=== PATIENT | male | born 1965 | race African-American/Black ===

== ENCOUNTER 2017-04-19 12:16 | Inpatient (IN) ==
--- NOTE | 2017-04-19 13:30 | CT Report ---
Referring physician: Eddie Aguayo Exam: CT brain without contrast Date: 04/19/2017 Comparison: 02/21/2017 Reason: Right-sided weakness, slurred speech Technique: Axial images of the head were obtained without the use of contrast. Total DLP was 1025.60 mGy*cm. Findings: No hydrocephalus or midline shift is present. There is no evidence of an acute infarction, recent intracranial hemorrhage or abnormal mass effect. Persistent atrophy and diffuse cerebral hypodensities. Residual diffuse dilatation of the arteries. The osseous structures appear intact. The mastoid air cells and visualized paranasal sinuses are clear. Impression: No acute intracranial abnormality is identified. Persistent atrophy and microvascular disease The CT exam was performed using one or more of the following dose reduction techniques: Automated exposure control and adjustment of the mA and/or kV according to patient size. PROCEDURE INTERPRETED AT [facility] DEPARTMENT OF RADIOLOGY Final Report Signed by: Dr. Cathleen Patton
[2017-04-19 14:31] LABS: Basophils % 0.7 % (0.0-0.8); Eosinophils % 0.5 % (0.00-10.9); Hematocrit 39.5 VOL% (42.0-52.0); Hemoglobin 13.4 GM/DL (14.0-18.0); Immature Granulocytes % 0.4 %; Immature Granulocytes Absolute 0.02 #; Lymphocytes # 1.4 10*3/uL (1.4-4.0); Lymphocytes % 25.7 % (21.2-54.2); Mean Corpuscular HGB Conc 33.9 GM/DL (32-36); Mean Corpuscular Hemoglobin 30 PG (27-34); Mean Corpuscular Volume 89.2 FL (87-102); Mean Platelet Volume 11.3 FL (9.6-12.0); Monocytes # 0.3 10*3/uL (0.11-0.8); Monocytes % 5.9 % (1.7-12.7); Neutrophils # 3.7 10*3/uL (1.4-7.4); Neutrophils % 66.8 % (38.7-73.9); Platelet Count 193 T/CUMM (130-400); Red Blood Count 4.43 MC/CUMM (3.8-5.5); Red Cell Distribution Width 11.9 % (9.3-17.3); White Blood Count 5.6 T/CUMM (4-12)
[2017-04-19 14:35] LABS: INR 1.1; PT Patient Result 11.7 SECS
--- NOTE | 2017-04-19 14:38 | EKG Report ---
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
[2017-04-19 14:49] LABS: Albumin 4.1 G/DL (3.4-5.0); Bilirubin,Total 0.7 MG/DL (0.2-1.0); Calcium 9.6 MG/DL (8.5-10.1); Osmolality,Calculated 282.3 MOS/KG (273-304); Potassium 3.4 MMOL/L (3.5-5.1); Total Protein 7.4 G/DL (6.4-8.3)
--- NOTE | 2017-04-19 15:00 | Emergency Department Note ---
Gianni Bruce Brittany, am scribing for, and in the presence of, Eddie Aguayo MD 13:59. Dede Bruce Phillip K, MD, personally performed the services described in this documentation, ascribed by Heather Archer in my presence, and it is both accurate and complete . Arrival - Arrival Chief Complaint: Neuro Stated Complaint: pain in right leg ED Nursing Triage Note: reports woke up this morning unable to move right leg. pt is tearful. drooping to right side of face.has had strokes in the past . last cva was in 2008. speech is slurred. Mode of Arrival: Wheelchair Limitations: No Limitations Source: Patient Time Seen by Provider: 04/19/17 13:20 - History of Present Illness HPI Narrative: This is a 51 y/o male,who presents to the ED for further neurological evaluation. 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 He reports his RUE is numb as well. He denies a GOMEZ. His notes slurred speech. His PCP is Dr. Coyle. Pt has no complaints/pain in the ED at this time. Pt has a PMHx of HTN and CVA. Pt denies a surgical Hx. Pt has a family medical Hx of CVA. Pt denies a social Hx. Onset (ago): hour(s) (Started earlier this morning) Consistency: constant Severity: moderate Allergies/Adverse Reactions: Allergies Allergy/AdvReac Type Severity Reaction Status Date / Time No Known Allergies Allergy Verified 10/06/16 23:06 Home Medications: Home Medications Medication Instructions Recorded Confirmed Type Diclofenac Sodium Tab [Voltaren] 50 mg PO BID 07/12/16 04/19/17 History Fluticasone 50 Mcg Nasal [place] 1 spray BOTH NARES DAILY 07/12/16 04/19/17 History [Flonase Nasal [place]] Furosemide [Furosemide] 40 mg PO DAILY 07/12/16 04/19/17 History Gabapentin Cap/Tab [Neurontin 300 mg PO TID 07/12/16 04/19/17 History Cap/Tab] Potassium Chloride Cap/Tab [K Dur] 20 meq PO DAILY 07/12/16 04/19/17 History Simvastatin 20 mg PO DAILY 07/12/16 04/19/17 History Aspirin EC Tab 81 mg PO DAILY 04/19/17 04/19/17 History Cetirizine Tab [ZyrTEC Tab] 10 mg PO DAILY 04/19/17 04/19/17 History FLUoxetine [PROzac] 20 mg PO DAILY 04/19/17 04/19/17 History Labetalol Tab [Trandate Tab] 100 mg PO BID 04/19/17 04/19/17 History Lisinopril/Hydrochlorothiazide 1 each PO DAILY 04/19/17 04/19/17 History [Lisinopril-Hctz 20-12.5 mg Tab] NIFEdipine [Nifedipine ER] 90 mg PO DAILY 04/19/17 04/19/17 History Review of System - Review of System 12 point system: reviewed and no additional remarkable complaints except as stated - Review of System Neurological: Present: weakness (Weakness to the RLE), other (SLurred speech) Medical,Surgical,& Family Hx - Medical History Cardio: History of: Hypertension Neurology: History of: Cerebrovascular Accident (X2 2008) - Social History Smoking Status: Never smoker Exam Vital Signs: Vital Signs Temperature 99.1 F 04/19/17 12:23 Pulse Rate 85 04/19/17 12:23 Respiratory Rate 20 04/19/17 12:23 Blood Pressure 168/114 04/19/17 12:23 O2 Sat by Pulse Oximetry 96 04/19/17 12:23 - General General appearance: alert, in no apparent distress - Head Head exam: Present: atraumatic, normocephalic, normal inspection - Eye Eye exam: Present: normal appearance, PERRL, EOMI. Absent: nystagmus, miosis, mydriasis - ENT ENT exam: Present: normal exam, normal oropharynx, mucous membranes moist, TM's normal bilaterally, normal external ear exam - Neck Neck exam: Present: normal inspection, full ROM, trachea midline. Absent: tenderness, meningismus, lymphadenopathy, thyromegaly - Chest Chest inspection: Present: normal inspection, symmetric chest wall rise. Absent : tenderness, rash, abscess - Respiratory Respiratory exam: Present: normal lung sounds bilaterally. Absent: rales, respiratory distress, rhonchi, stridor, wheezes - Cardiovascular Cardiovascular exam: Present: regular rate, irregular rhythm, normal heart sounds. Absent: murmur, rubs, gallop, clicks, JVD - Abdominal Exam Abdominal exam: Present: soft, normal bowel sounds. Absent: distention, tenderness, guarding, rebound, rigidity - Rectal Exam Rectal exam: Present: deferred - Extremities Exam Extremities exam: Present: normal capillary refill, other (Unable to move DAMARIS secondary to CVA). Absent: pedal edema, joint swelling, calf tenderness - Back Exam Back exam: Present: normal inspection, full ROM. 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 Absent: depressed, agitated, anxious, manic - Skin Skin exam: Present: warm, dry, intact, normal color. Absent: rash, cyanosis, diaphoresis, erythema, pallor, mottled Results - Labs CBC & BMP: 04/19/17 12:53 04/19/17 12:53 Lab Results: I have reviewed the patients labs Labs: Laboratory Tests 04/19/17 12:53 WBC 5.6 RBC 4.43 Hgb 13.4 L Hct 39.5 L MCV 89.2 MCH 30 MCHC 33.9 RDW 11.9 Plt Count 193 MPV 11.3 Neut % (Auto) 66.8 Lymph % (Auto) 25.7 [place] % (Auto) 5.9 Eos % (Auto) 0.5 Baso % (Auto) 0.7 Neut # (Auto) 3.7 Lymph # (Auto) 1.4 [place] # (Auto) 0.3 Eos # (Auto) 0.0 Baso # (Auto) 0.0 Immature Gran % 0.4 Nucleated RBC % 0.0 Immature Gran # 0.02 Nucleated RBCs # 0.00 - EKG EKG results: interpreted by ERMD, sinus rhythm (Possible old inferior DE nonspecific ST-T changes) - Diagnostic Findings Procedure: CT: report reviewed by me (Head CT: No acute intracranial abnormality is identified. Persistent atrophy and microvascular disease. ) Disposition Clinical Impression: Cerebrovascular accident, Hypertension Case discussed with: patient, patient's family Disposition: Still a Patient Condition: Guarded Additional Instructions: Admit to the hospitalist
--- NOTE | 2017-04-19 16:25 | Event Note ---
This is an addendum to History and Physical. I have seen and examined the patient and I agree with the assessment and plan as outlined by Richardson Ferrari NP. Mr Post is a 51 yo M with a history of CVA with residual right sided weakness, HTN who presents with increased right sided weakness. Exam suggests right sided facial drooping and right sided weakness. Will admit to observation and obtain MRI, echo, carotid US. Neurology will be consulted.
--- NOTE | 2017-04-19 17:37 | Hospitalist History & Physical ---
Assessment and Plan (1) Cerebrovascular accident Status: Acute Assessment and plan: Admit to hospitalist service. Consult Neuro. CT reported no acute abnormality noted. MRI to follow. PT consult. Neuro checks. Current Visit: Yes (2) Hypertension Status: Acute Assessment and plan: Restart home medications. Continue to monitor. Current Visit: Yes History of Present Illness Chief complaint: right sided weakness History of present illness: Mr. Post is a 51 year old black male with a history of hypertension and stroke presents to the ED today for further evaluation of right-sided weakness. and mother in law present at bedside. Patient states the symptoms began this morning when he woke up. Patient states he was unable to move his right lower extremity. He also reports that his right upper extremity is moving but he is able to move it. Pt. has dropping to the right side of his face. He denies headache, vision, left-sided weakness but reports slurred speech. States that he is scheduled to see a speech therapist because he has been having issues with his speech for about 2 months. Patient also says that he was scheduled to have a MRI performed on the . PCP is Dr. Coyle and he is seen by Dr. Riley after the two strokes the patient has had in the past. He denies any other complaints at this time. Pt. will be admitted for further eval and treatment. Home Medications Medication Instructions Recorded Confirmed Type Diclofenac Sodium Tab [Voltaren] 50 mg PO BID 07/12/16 04/19/17 History Fluticasone 50 Mcg Nasal [place] 1 spray BOTH NARES DAILY 07/12/16 04/19/17 History [Flonase Nasal [place]] Furosemide [Furosemide] 40 mg PO DAILY 07/12/16 04/19/17 History Gabapentin Cap/Tab [Neurontin 300 mg PO TID 07/12/16 04/19/17 History Cap/Tab] Potassium Chloride Cap/Tab [K Dur] 20 meq PO DAILY 07/12/16 04/19/17 History Simvastatin 20 mg PO DAILY 07/12/16 04/19/17 History Aspirin EC Tab 81 mg PO DAILY 04/19/17 04/19/17 History Cetirizine Tab [ZyrTEC Tab] 10 mg PO DAILY 04/19/17 04/19/17 History FLUoxetine [PROzac] 20 mg PO DAILY 04/19/17 04/19/17 History Labetalol Tab [Trandate Tab] 100 mg PO BID 04/19/17 04/19/17 History Lisinopril/Hydrochlorothiazide 1 each PO DAILY 04/19/17 04/19/17 History [Lisinopril-Hctz 20-12.5 mg Tab] NIFEdipine [Nifedipine ER] 90 mg PO DAILY 04/19/17 04/19/17 History Allergies Allergy/AdvReac Type Severity Reaction Status Date / Time No Known Allergies Allergy Verified 10/06/16 23:06 Medical,Surgical,& Family Hx - Medical History Cardio: History of: Hypertension Neurology: History of: Cerebrovascular Accident (X2 2008) - Surgical History HEENT Surgeries: Surgical HX of: Tonsilectomy & Adenoidectomy (tonsilectomy) - Social History Smoking Status: Never smoker Frequency of Alcohol Use: None Marital Status: Functional capacity: independent ambulation - Constitutional Constitutional: Present: weakness. Absent: chills, fever(s) - EENT Eyes: Absent: blurry vision, loss of vision Ears: Absent: decreased hearing, ear discharge - Cardiovascular Cardiovascular: Absent: chest pain at rest, dyspnea on exertion, edema, lightheadedness - Respiratory Respiratory: Absent: cough, dyspnea - Gastrointestinal Gastrointestinal: Absent: abdominal pain, nausea, vomiting - Genitourinary Genitourinary: Absent: dysuria, urinary frequency - Neurological Neurological: Present: abnormal gait, abnormal speech, numbness (ANT). Absent: confusion Exam - Constitutional Vitals: Period Temp Pulse Resp BP Sys/Freitas Pulse Ox Last 24 Hr 99.1 F-99.1 F 57-95 18-20 113-180/86-114 96-100 General appearance: no acute distress, over weight - Head Head exam: Present: normal inspection, normocephalic - Eye Eye exam: Present: EOMI. Absent: scleral icterus Pupils: Present: CAROLYNN. Absent: fixed - ENT ENT exam: Present: normal exam - Neck Neck exam: Present: normal inspection. Absent: thyromegaly - Respiratory Respiratory exam: Present: clear to auscultation bilaterally. Absent: wheezes - Cardiovascular Cardiovascular exam: Present: regular rate and rhythm - GI/Abdominal GI/Abdominal exam: Present: normal bowel sounds, soft. Absent: tenderness - Extremities Exam Extremities exam: Present: other (pt has notable right sided weakness. 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
--- NOTE | 2017-04-19 19:41 | Magnetic Resonance Report ---
MR head/brain wo con Indication: Right-sided weakness. MRI BRAIN WITHOUT CONTRAST Technique: Multiplanar noncontrast MR images of the brain were obtained. Comparison: CT brain obtained today Findings: Tiny focus of restricted diffusion involves the deep white matter adjacent to the posterior left lateral ventricle within the lozada radiata left parietal region. No other restricted diffusion is shown. No mass or mass effect. No evidence of hemorrhage. Some degree of patchy T2 and flair hyperintensity involves deep white matter of both convexities. Generalized atrophy noted as well. Sinuses are clear. Mastoid air cells are clear. Orbits are symmetric. Impression: Acute lacunar infarct periventricular deep white matter left parietal lozada radiata. Generalized atrophy. PROCEDURE INTERPRETED AT [facility] DEPARTMENT OF RADIOLOGY Final Report Signed by: Dylon Castillo M.D.
[2017-04-19] MEDS: LABETALOL 100 MG TABLET PO SCH (20:52)
--- NOTE | 2017-04-19 22:57 | Ultrasound Report ---
US carotid duplex BI Indication: Stroke. CAROTID ULTRASOUND Comparison: 08/13/2009. Findings: Grayscale, color Doppler and pulsed Doppler interrogation of the carotid and vertebral arteries performed. Severity of stenosis based on flow velocity measurements using NASCET criteria. Distal right ICA diameter: 5.8 mm Distal left ICA diameter: 5.1 mm Peak systolic flow velocities in centimeters per second are as follows: Right: CCA: 74 cm/s Proximal ICA: 31 Distal ICA: 52 ICA/CCA ratio: 0.7 Left: CCA: 92 cm/s Proximal ICA: 84 Distal ICA: 58 ICA/CCA ratio: 0.9 External carotid arteries: Both are patent with antegrade flow. Vertebral arteries: Both are patent with antegrade flow. Grayscale and color Doppler images: No significant focal plaque deposition identified, with normal color Doppler flow present. Vascular tortuosity is present. Pulse Doppler waveform interrogation: No significant spectral broadening. Impression: No hemodynamically significant stenosis of either ICA origin. PROCEDURE INTERPRETED AT [facility] DEPARTMENT OF RADIOLOGY Final Report Signed by: Dylon Castillo M.D.
[2017-04-20 06:09] LABS: Basophils % 0.6 % (0.0-0.8); Eosinophils # 0.1 10*3/uL (0.0-0.87); Eosinophils % 1.1 % (0.00-10.9); Hematocrit 38.8 VOL% (42.0-52.0); Hemoglobin 12.7 GM/DL (14.0-18.0); Immature Granulocytes % 0.4 %; Immature Granulocytes Absolute 0.02 #; Lymphocytes # 1.6 10*3/uL (1.4-4.0); Lymphocytes % 29.5 % (21.2-54.2); Mean Corpuscular HGB Conc 32.7 GM/DL (32-36); Mean Corpuscular Hemoglobin 30 PG (27-34); Mean Platelet Volume 11.3 FL (9.6-12.0); Monocytes # 0.4 10*3/uL (0.11-0.8); Monocytes % 7.9 % (1.7-12.7); Neutrophils # 3.2 10*3/uL (1.4-7.4); Neutrophils % 60.5 % (38.7-73.9); Platelet Count 171 T/CUMM (130-400); Red Blood Count 4.31 MC/CUMM (3.8-5.5); Red Cell Distribution Width 11.9 % (9.3-17.3); White Blood Count 5.3 T/CUMM (4-12)
[2017-04-20 06:41] LABS: Calcium 9.2 MG/DL (8.5-10.1); Osmolality,Calculated 286.8 MOS/KG (273-304); Potassium 3.2 MMOL/L (3.5-5.1)
[2017-04-20 06:45] LABS: Risk Ratio 2.66; VLDL CHOLESTEROL 12.8 MG/DL
[2017-04-20] MEDS: ASPIRIN EC 81 MG TABLET PO SCH (08:21)
[2017-04-20] MEDS: LABETALOL 100 MG TABLET PO SCH ×2 (08:21→21:05)
[2017-04-20] MEDS: SIMVASTATIN 20 MG TABLET PO SCH (08:22)
--- NOTE | 2017-04-20 13:28 | Hospitalist Progress Note ---
Assessment and Plan - Time spent with patient Time spent with patient: Greater than 30 minutes (1) Cerebrovascular accident Status: Acute Assessment and plan: MRI confirms left parietal lozada radiata stroke. Carotid ultrasound reviewed. Echo pending. Neurology consulted. Social work, PT and OT consulted. Speech therapy consult. Current Visit: Yes (2) Dyslipidemia Status: Acute Assessment and plan: Continue current management. Current Visit: Yes (3) Hypertension Status: Acute Assessment and plan: Appears optimally controlled and in fact permissively hypertensive. Continue current management. Current Visit: Yes Hospitalist: Subjective Interval history: No complaints. Patient is working with physical therapy. Exam - Constitutional Vitals: Period Temp Pulse Resp BP Sys/Freitas Pulse Ox Last 24 Hr 97.7 F-99 F 46-75 16-20 113-180/71-106 94-100 General appearance: no acute distress - Head Head exam: Present: normocephalic, atraumatic - Eye Eye exam: Present: EOMI Pupils: Present: CAROLYNN - ENT ENT exam: Present: normal exam - Neck Neck exam: Present: normal inspection - Respiratory Respiratory exam: Present: clear to auscultation bilaterally. Absent: rhonchi, wheezes - Cardiovascular Cardiovascular exam: Present: regular rate and rhythm. Absent: gallop, rubs, systolic murmur - GI/Abdominal GI/Abdominal exam: Present: normal bowel sounds, soft. Absent: distended, firm , guarding, tenderness, rebound - Extremities Exam Extremities exam: Present: normal inspection. Absent: calf tenderness, edema - Neurological Exam Neurological exam: Present: other (Right-sided weakness noted. Facial droop in the right side.) Results - Labs CBC & BMP: 04/20/17 04:23 04/20/17 04:23 Lab Results: I have reviewed the past 24 hour labs Quality Measures - Stroke Onset of Symptoms Date: 04/19/17 Onset of Symptoms Time: 07:00
--- NOTE | 2017-04-20 14:14 | ECHO Report ---
Denzel Post Exam Date: 04/20/2017 10:00 Referring Physician: Technologist: michelet Wheatley ARDMS, RVT Age: 51 Ht (in): 68 Wt (lb): 255 Gender: M Exam Location: [facility] Echo Indications: Weakness, Essential (primary) hypertension, CVA BP: 164 / 83 HR: 46 Rhythm: Sinus Technical Quality: average IMPRESSIONS Left ventricular ejection fraction is estimated at 60 %. Mild left ventricular hypertrophy. Grade 1 diastolic dysfunction - Tricuspid regurgitation velocities suggest a RVSP of 21 mmHg. impaired relaxation. Tricuspid regurgitation velocities suggest a RVSP of 21 mmHg. MEASUREMENTS (Male / Female) Normal Values 2D ECHO LV Diastolic Diameter PLAX 5.5 cm 4.2 - 5.9 / 3.9 - 5.3 cm LV Systolic Diameter PLAX 2.9 cm LV Fractional Shortening PLAX 46.4 % IVS Diastolic Thickness 1.4 cm 0.6 - 1.0 / 0.6 - 0.9 cm LVPW Diastolic Thickness 1.3 cm 0.6 - 1.0 / 0.6 - 0.9 cm RV Internal Dim ED PLAX 3.4 cm Aortic Root Diameter 4.6 cm LA Systolic Diameter LX 4.4 cm 3.0 - 4.0 / 2.7 - 3.8 cm DOPPLER TR Peak Velocity 227.0 cm/s TR Peak Gradient 20.6 mmHg FINDINGS Left Ventricle Mild left ventricular hypertrophy. Left ventricular ejection fraction is estimated at 60 %. There is no regional wall motion abnormality. Diastolic parameters are most consistent with grade 1 diastolic dysfunction impaired relaxation Right Ventricle The right ventricle is normal in size and function. Right Atrium The right atrium is normal in size. Left Atrium The left atrium is mildly enlarged. Mitral Valve Mitral valve sclerosis. Aortic Valve Morphologically normal aortic valve without significant sclerosis or stenosis. There is no aortic regurgitation. Tricuspid Valve Morphologically normal tricuspid valve. Trace tricuspid valve regurgitation. Tricuspid regurgitation velocities suggest a RVSP of 21 mmHg. Pulmonic Valve Morphologically normal pulmonic valve without significant stenosis. There is no pulmonic regurgitation. Pericardium Normal pericardium without effusion. Aorta Normal ascending aorta dimension. Connie Forde (Electronically Signed) Final Date: 20 April 2017 14:12
--- NOTE | 2017-04-20 14:26 | Neurology Consult Note ---
History of Present Illness History of present illness: Mr. Post is a 51 year old -[place] gentleman with a history of hypertension and stroke in the past affected right body without any residual problems presents to the ED yesterday for further evaluation of right-sided weakness. Patient states the symptoms began yesterday morning when he woke up. Patient states he was unable to move his right lower extremity. He also reports that his right upper extremity is weak he is able to move it. He denies headache, vision difficulties, left-sided problem but reports slurred speech. States that he is scheduled to see a speech therapist because he has been having issues with his speech for about 2 months. MRI of the brain revealed acute left subcortical acute infarct. Carotid ultrasound is unremarkable. Lipid profile is within normal limits. Patient was taking aspirin a day at home. Echocardiogram reveals ejection fraction of 60%. He denies any other complaints at this time. Home Medications Medication Instructions Recorded Confirmed Type Diclofenac Sodium Tab [Voltaren] 50 mg PO BID 07/12/16 04/19/17 History Fluticasone 50 Mcg Nasal [place] 1 spray BOTH NARES DAILY 07/12/16 04/19/17 History [Flonase Nasal [place]] Furosemide [Furosemide] 40 mg PO DAILY 07/12/16 04/19/17 History Gabapentin Cap/Tab [Neurontin 300 mg PO TID 07/12/16 04/19/17 History Cap/Tab] Potassium Chloride Cap/Tab [K Dur] 20 meq PO BID 07/12/16 04/19/17 History Simvastatin 20 mg PO DAILY 07/12/16 04/19/17 History Aspirin EC Tab 81 mg PO DAILY 04/19/17 04/19/17 History Cetirizine Tab [ZyrTEC Tab] 10 mg PO DAILY 04/19/17 04/19/17 History FLUoxetine [PROzac] 20 mg PO DAILY 04/19/17 04/19/17 History Labetalol HCl 400 mg PO BID 04/19/17 04/19/17 History Labetalol Tab [Trandate Tab] 100 mg PO BID 04/19/17 04/19/17 History Lisinopril/Hydrochlorothiazide 1 each PO DAILY 04/19/17 04/19/17 History [Lisinopril-Hctz 20-12.5 mg Tab] NIFEdipine [Nifedipine ER] 90 mg PO DAILY 04/19/17 04/19/17 History Allergies Allergy/AdvReac Type Severity Reaction Status Date / Time No Known Allergies Allergy Verified 10/06/16 23:06 12 point system: reviewed and no additional remarkable complaints except as stated Medical,Surgical,& Family Hx - Medical History Cardio: History of: Hypertension Neurology: History of: Cerebrovascular Accident (X2 2009) - Surgical History HEENT Surgeries: Surgical HX of: Tonsilectomy & Adenoidectomy (tonsilectomy) - Social History Smoking Status: Never smoker Frequency of Alcohol Use: None Exam - Constitutional Vitals: Period Temp Pulse Resp BP Sys/Freitas Pulse Ox Last 24 Hr 97.7 F-99 F 46-75 16-20 113-180/71-106 94-100 Exam: GENERAL: Patient is in no acute distress. NECK: Neck is supple. There is no JVD. No carotid bruits present. No thyroid masses. CVS: First and second heart sounds are normal. There is no S3 present. Regular rate and rhythm. RESPIRATORY: Lungs are clear to auscultation without any rales or rhonchi. ABDOMEN: Soft and non-tender. Bowel sounds are present. There is no hepatosplenomegaly. EXT: There is no palpable edema. Peripheral pulses are present. Skin: No rashes Central Nervous system: General: Alert, awake and Oriented x 3 Speech: Fluent Comprehension: Intact and normal Facial expressions: Normal Cranial Nerves: CN1/Olfactory: Normal CN II/ Optic: Normal, Visual [place] unreliable CN III, and : CAROLYNN & EOMI CN V: Normal & intact CN VII: face is symmetric CNVIII: Normal CN XI/X/XI/XII: Intact and Normal Motor: Bulk and Tone is normal. Strength in the right 3/5 Strength in the left 4-5/5 Sensory: Decreased for all the modalities of PP, LT and temp sense in the right Reflexes: 1+ and symmetrical Cerebellar function: Slow finger to nose and heel to grant testing in the right. Toes: Equivocal Gait: Not tested at this time Results - Labs CBC & BMP: 04/20/17 04:23 04/20/17 04:23 Assessment and Plan (1) Acute CVA (cerebrovascular accident) Status: Acute Assessment and plan: Continue aspirin Add Plavix Consult TMR Thank you for the consult Current Visit: Yes
[2017-04-20] MEDS: CLOPIDOGREL 75 MG TABLET PO SCH (15:22)
[2017-04-20] MEDS: POTASSIUM CHLORIDE RIDER 10 MEQ in PREMIX 1 EACH IV SCH ×3 (16:21→23:03)
[2017-04-21] MEDS: POTASSIUM CHLORIDE RIDER 10 MEQ in PREMIX 1 EACH IV SCH (00:23)
[2017-04-21 06:11] LABS: Calcium 8.9 MG/DL (8.5-10.1); Osmolality,Calculated 279.4 MOS/KG (273-304); Potassium 3.5 MMOL/L (3.5-5.1)
[2017-04-21] MEDS: LABETALOL 100 MG TABLET PO SCH (08:38)
[2017-04-21] MEDS: SIMVASTATIN 20 MG TABLET PO SCH (08:38)
[2017-04-21] MEDS: ASPIRIN EC 81 MG TABLET PO SCH (08:38)
[2017-04-21] MEDS: CLOPIDOGREL 75 MG TABLET PO SCH (08:38)
[2017-04-21 11:37] VITALS: BP 128/82
--- NOTE | 2017-04-21 12:00 | Discharge Summary ---
Hospital Course - Hospital Course Hospital Course: Mr Post is a 56-year-old male with a medical history of hypertension and previous stroke with residual right-sided weakness presents with worsening right -sided weakness. CT in the ER revealed no acute abnormalities. An MRI of his brain was performed. This revealed an acute Lacunar infarct in the periventricular deep white matter of the left parietal lozada radiata. His LDL was obtained and was 87. Blood pressure initially was managed with permissive hypertension however his home medications were continued slightly lower dose. He was seen in consultation by neurology who initiated Plavix. Patient was seen by physical therapy and social work had the patient evaluated by [facility] where he was accepted for placement and further physical therapy. By discharge he had met maximum benefit of hospitalization. I spent 35 minutes coordinating this discharge. - Time spent with patient Time with patient DS: Greater than 30 minutes Diagnosis - Discharge Diagnosis (1) Cerebrovascular accident Status: Acute (2) Dyslipidemia Status: Acute (3) Hypertension Status: Acute Specialty Discharge - Follow Up or Referrals Discharge Plan - Discharge Data Disposition: Disch/Xfer-Ip Rehab Fac Condition at Discharge: Stable Discharge Diet: advance to your usual diet Activity: resume usual activities as tolerated - Discharge Medications New Clopidogrel [Plavix] 75 mg PO DAILY tablet Continue Diclofenac Sodium Tab [Voltaren] 50 mg PO BID Furosemide 40 mg PO DAILY Simvastatin 20 mg PO DAILY Gabapentin Cap/Tab [Neurontin Cap/Tab] 300 mg PO TID Fluticasone 50 Mcg Nasal Mingus [Flonase Nasal Mingus] 1 spray BOTH NARES DAILY FLUoxetine [PROzac] 20 mg PO DAILY Cetirizine Tab [ZyrTEC Tab] 10 mg PO DAILY Labetalol Tab [Trandate Tab] 100 mg PO BID Aspirin EC Tab 81 mg PO DAILY NIFEdipine [Nifedipine ER] 90 mg PO DAILY Discontinued Potassium Chloride Cap/Tab [K Dur] 20 meq PO BID Lisinopril/Hydrochlorothiazide [Lisinopril-Hctz 20-12.5 mg Tab] 1 each PO DAILY Labetalol HCl 400 mg PO BID - Follow Up or Referral - Forms/Instructions Instructions: Ischemic Stroke (DC) Exam - Constitutional Vitals: Period Temp Pulse Resp BP Sys/Freitas Pulse Ox Last 24 Hr 97.4 F-98.6 F 18-81 16-20 128-158/71-98 89-99 General appearance: normal weight, no acute distress - Head Head exam: Present: normal inspection, normocephalic, atraumatic - Eye Eye exam: Present: EOMI Pupils: Present: CAROLYNN - ENT ENT exam: Present: normal exam - Neck Neck exam: Present: normal inspection - Respiratory Respiratory exam: Present: clear to auscultation bilaterally. Absent: accessory muscle use, prolonged expiratory phase, wheezes - Cardiovascular Cardiovascular exam: Present: regular rate and rhythm. Absent: bradycardia, irregular rhythm, systolic murmur - GI/Abdominal GI/Abdominal exam: Present: normal bowel sounds. Absent: ascites, hypoactive bowel sounds, tenderness - Extremities Exam Extremities exam: Present: normal inspection. Absent: normal capillary refill Discharge Results Labs on day of discharge: Labs from last 24 hours 04/21/17 04:48 Sodium 140 Potassium 3.5 Chloride 105 Carbon Dioxide 28 Anion Gap 10.5 BUN 14 Creatinine 0.90 GFR Calculation 148 BUN/Creatinine Ratio 15.00 Glucose 92 Calculated Osmolality 279.4 Calcium 8.9 DS: Provider Date of admission: 04/20/17 13:48 Primary care physician: Naun Coyle MD Attending physician on admission: Lawanda Snider MD Consults: 04/19/17 16:08 Consult to Physician [CONS] Routine Comment: right sided weakness Consulting Provider: Markus Riley Consulting Provider Notified: Yes When should Consulting Provider be notified: Now Consult to Specialist Group: Neurology When should Consulting Provider be notified: Now Person Notified: MISSY Date Notified: 04/20/17 Time Notified: 08:41 04/19/17 16:10 Consult to Case Mgmt/Social Srvs [CONS] Routine Reason for Case Mgmt/Social Srvs: Rehab Consult to Occupational Therapy [CONS] Routine Reason for Occupational Therapy: Weakness Consult to Physical Therapy [CONS] Routine Reason for Physical Therapy: Weakness 04/19/17 17:29 Consult to Pastoral Services [CONS] Routine Comment: Pastoral Screen: Request Offal Icer Poultry Visit Pastoral Screen Source of Request: Patient 04/20/17 12:41 Consult to Speech Therapy [CONS] Routine Reason for Speech Therapy: Evaluate and Treat Consult Comment: cva Discharging clinician: Lawanda Snider MD Expected date of discharge: 04/21/17
== END 2017-04-21 14:15 | DRG 65 ==
LOC: N.ED 12:16 → N.EDINP 12:16 → N.4E 16:35
PROVIDERS: ADMIT Internal Medicine; ATTEND Internal Medicine

== ENCOUNTER 2019-03-21 21:00 | Inpatient (IN) ==
[2019-03-21] MEDS ORDERED: LORazepam 2 MG/1 ML VIAL IV STA ×2 (21:05→21:07)
[2019-03-21] MEDS ORDERED: FOSPHENYTOIN 1,000 MG.PE in SODIUM CHLORIDE 0.9% 250 ML IV STA (21:08)
[2019-03-21] MEDS ORDERED: PHENYTOIN 250 MG/5 ML VIAL IV ONE (21:21)
[2019-03-21] MEDS ORDERED: SUCCINYLCHOLINE 200 MG/10 ML VIAL ONE (22:00)
[2019-03-21] MEDS ORDERED: SUCCINYLCHOLINE 200 MG/10 ML VIAL IV ONE (22:09)
[2019-03-21] MEDS ORDERED: ETOMIDATE 20 MG/10 ML VIAL IV STA (22:10)
[2019-03-21] MEDS ORDERED: SODIUM CHLORIDE 0.9% 2,000 ML IV STA (22:11)
[2019-03-21] MEDS ORDERED: CEFEPIME 2,000 MG in SODIUM CHLORIDE 0.9% 100 ML IV STA (22:11)
[2019-03-21] MEDS ORDERED: VANCOMYCIN INJ 1,250 MG in SODIUM CHLORIDE 0.9% 250 ML IV ONE (22:12)
[2019-03-21 22:19] LABS: Basophils % 0.1 % (0.0-0.8); Eosinophils # 0.1 10*3/uL (0.0-0.87); Eosinophils % 0.7 % (0.00-10.9); Hematocrit 31.1 VOL% (42.0-52.0); Hemoglobin 9.7 GM/DL (14.0-18.0); Immature Granulocytes % 0.2 %; Immature Granulocytes Absolute 0.02 #; Lymphocytes # 0.7 10*3/uL (1.4-4.0); Mean Corpuscular HGB Conc 31.2 GM/DL (32-36); Mean Corpuscular Volume 97.5 FL (87-102); Mean Platelet Volume 11.2 FL (9.6-12.0); Monocytes % 6.7 % (1.7-12.7); Neutrophils % 83.3 % (38.7-73.9); Platelet Count 171 T/CUMM (130-400); Red Blood Count 3.19 MC/CUMM (3.8-5.5); White Blood Count 8.2 T/CUMM (4-12)
[2019-03-21 22:32] LABS: Alanine Aminotransferase 14 U/L (16-61); Albumin 2.8 G/DL (3.4-5.0); Alkaline Phosphatase 47 U/L (45-117); Aspartate Amino Transferase 18 U/L (0-37); Blood Urea Nitrogen 15 MG/DL (7-18); Calcium 8.1 MG/DL (8.5-10.1); Glucose 103 MG/DL (74-106); Osmolality,Calculated 290.6 MOS/KG (273-304); Total Protein 5.7 G/DL (6.4-8.3)
[2019-03-21] MEDS ORDERED: POTASSIUM CHLORIDE 20 MEQ/15 ML UDCUP PER TUBE STA (22:38)
[2019-03-21 22:51] LABS: Amorphous Crystals,Urine Occasional /HPF (Few); Apearance,Urine CLOUDY (Clear); Bacteria,Urine Few /HPF (Few); Bilirubin,Urine Negative (Negative); Blood, Urine Moderate mg/dL (Negative); Glucose,Urine (UA) Negative (Negative); Ketones,Urine Negative (Negative); Mucus,Urine Occasional /LPF (Occasional); Nitrite,Urine Negative (Negative); Protein,Urine >=500 MG/DL; RBC,Urine 126 /HPF (0-4); Urine Color Amber (Yellow); Urine Specific Gravity 1.013 (1.001-1.035); WBC,Urine 31 /HPF (0-6)
[2019-03-21 22:55] LABS: ABG Base Excess 28.5 MMOL/L (-2.5-2.5); ABG HCO3 51.7 MMOL/L (20-26); ABG Oxygen Saturation 99.5 % (95-100); ABG PCO2 43.3 MM HG (35-48); ABG PO2 403.9 MM HG (80-95); Pt O2 Delivery Device Ventilator
[2019-03-21 22:57] LABS: ABG PH 7.695 (7.35-7.45)
[2019-03-21] MEDS: PROPOFOL 1,000 MG/100 ML BOTTLE IV SCH (23:00)
[2019-03-21] MEDS ORDERED: POTASSIUM CHLORIDE 20 MEQ/15 ML UDCUP PER TUBE SCH (23:00)
[2019-03-21] MEDS ORDERED: VANCOMYCIN 1,000 MG VIAL ONE (23:49)
[2019-03-22] MEDS ORDERED: ONDANSETRON 4 MG/2 ML VIAL IV PRN (00:06)
[2019-03-22] MEDS ORDERED: LACTULOSE 20 GM/30 ML UDCUP PO PRN (00:06)
[2019-03-22] MEDS ORDERED: ALBUTEROL 2.5 MG/3 ML NEB RESP TX PRN (00:06)
[2019-03-22] MEDS ORDERED: NOREPINEPHRINE 8 MG in SODIUM CHLORIDE 0.9% 242 ML IV PRN (00:17)
[2019-03-22] MEDS ORDERED: NOREPINEPHRINE 4 MG/4 ML VIAL IV ONE (00:23)
[2019-03-22 00:32] LABS: INR 1.2; PT Patient Result 12.6 SECS
[2019-03-22] MEDS ORDERED: ROCURONIUM 100 MG/10 ML VIAL IV ONE (03:02)
[2019-03-22] MEDS: SODIUM CHLORIDE 0.9% 1,000 ML IV SCH ×4 (03:02→21:20)
[2019-03-22] MEDS: PIPERACILLIN/TAZOBACTAM 3,375 MG in SODIUM CHLORIDE 0.9% 100 ML IV SCH ×3 (03:07→21:18)
[2019-03-22 03:09] LABS: Basophils % 0.2 % (0.0-0.8); Eosinophils % 0.1 % (0.00-10.9); Hematocrit 32.7 VOL% (42.0-52.0); Hemoglobin 10.4 GM/DL (14.0-18.0); Immature Granulocytes % 0.5 %; Immature Granulocytes Absolute 0.06 #; Lymphocytes # 1.1 10*3/uL (1.4-4.0); Lymphocytes % 8.6 % (21.2-54.2); Mean Corpuscular HGB Conc 31.8 GM/DL (32-36); Mean Corpuscular Volume 95.6 FL (87-102); Mean Platelet Volume 10.7 FL (9.6-12.0); Monocytes % 4.6 % (1.7-12.7); Platelet Count 177 T/CUMM (130-400); Red Blood Count 3.42 MC/CUMM (3.8-5.5); Red Cell Distribution Width 13.1 % (9.3-17.3); White Blood Count 12.3 T/CUMM (4-12)
[2019-03-22] MEDS: PROPOFOL 1,000 MG/100 ML BOTTLE IV SCH ×5 (03:34→23:04)
[2019-03-22 03:42] LABS: Blood Urea Nitrogen 16 MG/DL (7-18); Calcium 8.8 MG/DL (8.5-10.1); Glucose 121 MG/DL (74-106); Osmolality,Calculated 287.8 MOS/KG (273-304)
[2019-03-22] MEDS: POTASSIUM CHLORIDE RIDER 20 MEQ in PREMIX 1 EACH IV PRN ×3 (03:57→08:15)
[2019-03-22 05:07] LABS: ABG Base Excess 24.3 MMOL/L (-2.5-2.5); ABG HCO3 49.8 MMOL/L (20-26); ABG Oxygen Saturation 99.1 % (95-100); ABG PCO2 56.9 MM HG (35-48); ABG PO2 209.4 MM HG (80-95); ABG TCO2 51.5 MMOL/L (23-27)
[2019-03-22] MEDS ORDERED: PANTOPRAZOLE 40 MG VIAL IV SCH (09:00)
[2019-03-22] MEDS: SKIN HEALING OINT (AQUAPHOR) 50 GM TUBE TOP SCH (15:15)
[2019-03-22] MEDS: POTASSIUM CHLORIDE 20 MEQ TABLET PO SCH ×2 (15:34→21:18)
[2019-03-22] MEDS: PANTOPRAZOLE 40 MG TABLET PO SCH (15:34)
[2019-03-23] MEDS: PIPERACILLIN/TAZOBACTAM 3,375 MG in SODIUM CHLORIDE 0.9% 100 ML IV SCH ×4 (01:18→20:11)
[2019-03-23] MEDS: PROPOFOL 1,000 MG/100 ML BOTTLE IV SCH ×6 (04:57→22:08)
[2019-03-23 05:12] LABS: ABG HCO3 42.2 MMOL/L (20-26); ABG PCO2 53.4 MM HG (35-48); ABG PH 7.521 (7.35-7.45); ABG TCO2 39.7 MMOL/L (23-27)
[2019-03-23] MEDS: SODIUM CHLORIDE 0.9% 1,000 ML IV SCH (05:12)
[2019-03-23 05:21] LABS: Basophils % 0.1 % (0.0-0.8); Eosinophils # 0.4 10*3/uL (0.0-0.87); Eosinophils % 3.7 % (0.00-10.9); Hematocrit 30.7 VOL% (42.0-52.0); Hemoglobin 9.6 GM/DL (14.0-18.0); Immature Granulocytes % 0.4 %; Immature Granulocytes Absolute 0.04 #; Lymphocytes # 1.2 10*3/uL (1.4-4.0); Lymphocytes % 12.5 % (21.2-54.2); Mean Corpuscular HGB Conc 31.3 GM/DL (32-36); Mean Corpuscular Volume 97.5 FL (87-102); Mean Platelet Volume 11.1 FL (9.6-12.0); Monocytes % 4.5 % (1.7-12.7); Neutrophils % 78.8 % (38.7-73.9); Platelet Count 165 T/CUMM (130-400); Red Blood Count 3.15 MC/CUMM (3.8-5.5); Red Cell Distribution Width 13.5 % (9.3-17.3); White Blood Count 9.6 T/CUMM (4-12)
[2019-03-23 05:41] LABS: Calcium 8.8 MG/DL (8.5-10.1); Osmolality,Calculated 290.4 MOS/KG (273-304)
[2019-03-23] MEDS: SKIN HEALING OINT (AQUAPHOR) 50 GM TUBE TOP SCH (09:06)
[2019-03-23] MEDS: POTASSIUM CHLORIDE 20 MEQ TABLET PO SCH (09:06)
[2019-03-23] MEDS: PANTOPRAZOLE 40 MG TABLET PO SCH (09:07)
[2019-03-23] MEDS: POTASSIUM CHLORIDE INJ 20 MEQ in LACTATED RINGERS 1,000 ML IV SCH ×2 (11:45→20:10)
[2019-03-23] MEDS: VANCOMYCIN INJ 1,250 MG in SODIUM CHLORIDE 0.9% 250 ML IV SCH ×2 (11:45→23:44)
[2019-03-23] MEDS: POTASSIUM CHLORIDE 20 MEQ/15 ML UDCUP PEG SCH ×3 (13:57→20:11)
[2019-03-23] MEDS: hydrALAZINE 20 MG/1 ML VIAL IV PRN (20:11)
[2019-03-24] MEDS: PROPOFOL 1,000 MG/100 ML BOTTLE IV SCH ×6 (01:49→22:03)
[2019-03-24] MEDS: PIPERACILLIN/TAZOBACTAM 3,375 MG in SODIUM CHLORIDE 0.9% 100 ML IV SCH ×3 (04:15→20:13)
[2019-03-24] MEDS: hydrALAZINE 20 MG/1 ML VIAL IV PRN ×3 (04:15→20:13)
[2019-03-24] MEDS: POTASSIUM CHLORIDE INJ 20 MEQ in LACTATED RINGERS 1,000 ML IV SCH ×4 (04:15→23:00)
[2019-03-24 04:55] LABS: ABG Base Excess 15.1 MMOL/L (-2.5-2.5); ABG HCO3 39.1 MMOL/L (20-26); ABG Oxygen Saturation 99.7 % (95-100); ABG PCO2 50.9 MM HG (35-48); ABG PH 7.509 (7.35-7.45); ABG TCO2 36.7 MMOL/L (23-27)
[2019-03-24 04:59] LABS: Basophils % 0.3 % (0.0-0.8); Eosinophils # 0.4 10*3/uL (0.0-0.87); Eosinophils % 5.1 % (0.00-10.9); Hematocrit 30.6 VOL% (42.0-52.0); Hemoglobin 9.5 GM/DL (14.0-18.0); Immature Granulocytes % 0.4 %; Immature Granulocytes Absolute 0.03 #; Lymphocytes % 13.2 % (21.2-54.2); Mean Corpuscular Volume 97.8 FL (87-102); Mean Platelet Volume 10.7 FL (9.6-12.0); Monocytes % 4.8 % (1.7-12.7); Neutrophils % 76.2 % (38.7-73.9); Platelet Count 160 T/CUMM (130-400); Red Blood Count 3.13 MC/CUMM (3.8-5.5); Red Cell Distribution Width 13.4 % (9.3-17.3); White Blood Count 7.7 T/CUMM (4-12)
[2019-03-24 05:19] LABS: Calcium 9.1 MG/DL (8.5-10.1); Osmolality,Calculated 291.3 MOS/KG (273-304)
[2019-03-24] MEDS: LISINOPRIL 20 MG TABLET PO SCH (06:43)
[2019-03-24] MEDS ORDERED: DEXTROSE 50% 25 GM/50 ML SYRINGE IV PRN (08:38)
[2019-03-24] MEDS ORDERED: GLUCAGON 1 MG VIAL IM PRN (08:38)
[2019-03-24] MEDS: POTASSIUM CHLORIDE 20 MEQ/15 ML UDCUP PEG SCH ×4 (09:08→20:13)
[2019-03-24] MEDS: SKIN HEALING OINT (AQUAPHOR) 50 GM TUBE TOP SCH (09:09)
[2019-03-24] MEDS: PANTOPRAZOLE 40 MG TABLET PO SCH (09:10)
[2019-03-24] MEDS: VANCOMYCIN INJ 1,250 MG in SODIUM CHLORIDE 0.9% 250 ML IV SCH ×2 (11:41→20:13)
[2019-03-24] MEDS: INSULIN REGULAR 100 UNIT/ML SUBCUT SCH ×2 (13:53→18:28)
[2019-03-24] MEDS: SERTRALINE 50 MG TABLET PO SCH (20:12)
[2019-03-24] MEDS: FAMOTIDINE 20 MG TABLET PEG SCH (20:12)
[2019-03-24] MEDS: ATORVASTATIN 10 MG TABLET PO SCH (20:12)
[2019-03-24] MEDS: APIXABAN 5 MG TABLET PO SCH (20:13)
[2019-03-24] MEDS: levETIRAcetam LIQUID 100 MG/ML 30 ML/BOTTLE PO SCH (20:13)
[2019-03-25] MEDS: PROPOFOL 1,000 MG/100 ML BOTTLE IV SCH ×5 (00:35→22:24)
[2019-03-25] MEDS: INSULIN REGULAR 100 UNIT/ML SUBCUT SCH ×4 (00:35→17:51)
[2019-03-25] MEDS: hydrALAZINE 20 MG/1 ML VIAL IV PRN ×2 (02:35→11:27)
[2019-03-25] MEDS: POTASSIUM CHLORIDE INJ 20 MEQ in LACTATED RINGERS 1,000 ML IV SCH ×4 (04:06→23:43)
[2019-03-25 05:15] LABS: ABG Base Excess 11.9 MMOL/L (-2.5-2.5); ABG HCO3 35.7 MMOL/L (20-26); ABG Oxygen Saturation 99.9 % (95-100); ABG PCO2 45.5 MM HG (35-48); ABG PH 7.511 (7.35-7.45)
[2019-03-25] MEDS: VANCOMYCIN INJ 1,250 MG in SODIUM CHLORIDE 0.9% 250 ML IV SCH ×3 (05:35→20:19)
[2019-03-25] MEDS: PIPERACILLIN/TAZOBACTAM 3,375 MG in SODIUM CHLORIDE 0.9% 100 ML IV SCH ×3 (05:40→20:19)
[2019-03-25 05:47] LABS: Osmolality,Calculated 293.3 MOS/KG (273-304)
[2019-03-25] MEDS: POTASSIUM CHLORIDE 20 MEQ/15 ML UDCUP PEG SCH (08:59)
[2019-03-25] MEDS: APIXABAN 5 MG TABLET PO SCH ×2 (09:00→20:20)
[2019-03-25] MEDS: LISINOPRIL 20 MG TABLET PO SCH (09:00)
[2019-03-25] MEDS: ASPIRIN EC 81 MG TABLET PO SCH (09:00)
[2019-03-25] MEDS: SKIN HEALING OINT (AQUAPHOR) 50 GM TUBE TOP SCH (09:01)
[2019-03-25] MEDS: levETIRAcetam LIQUID 100 MG/ML 30 ML/BOTTLE PO SCH ×2 (09:07→20:20)
[2019-03-25] MEDS: SERTRALINE 50 MG TABLET PO SCH (20:20)
[2019-03-25] MEDS: FAMOTIDINE 20 MG TABLET PEG SCH (20:20)
[2019-03-25] MEDS: ATORVASTATIN 10 MG TABLET PO SCH (20:20)
[2019-03-26] MEDS: INSULIN REGULAR 100 UNIT/ML SUBCUT SCH ×5 (00:30→23:47)
[2019-03-26] MEDS: PROPOFOL 1,000 MG/100 ML BOTTLE IV SCH ×2 (03:18→07:26)
[2019-03-26] MEDS: VANCOMYCIN INJ 1,250 MG in SODIUM CHLORIDE 0.9% 250 ML IV SCH ×3 (04:55→21:15)
[2019-03-26] MEDS: PIPERACILLIN/TAZOBACTAM 3,375 MG in SODIUM CHLORIDE 0.9% 100 ML IV SCH ×3 (04:55→21:18)
[2019-03-26 05:13] LABS: ABG Base Excess 10.3 MMOL/L (-2.5-2.5); ABG HCO3 34.9 MMOL/L (20-26); ABG Oxygen Saturation 98.7 % (95-100); ABG PCO2 47.4 MM HG (35-48); ABG PH 7.485 (7.35-7.45); ABG PO2 154.8 MM HG (80-95); ABG TCO2 36.4 MMOL/L (23-27)
[2019-03-26 05:28] LABS: Calcium 8.8 MG/DL (8.5-10.1); Osmolality,Calculated 295.1 MOS/KG (273-304)
[2019-03-26] MEDS: hydrALAZINE 20 MG/1 ML VIAL IV PRN (05:46)
[2019-03-26] MEDS: POTASSIUM CHLORIDE RIDER 20 MEQ in PREMIX 1 EACH IV PRN ×2 (05:57→08:32)
[2019-03-26] MEDS: POTASSIUM CHLORIDE INJ 20 MEQ in LACTATED RINGERS 1,000 ML IV SCH (08:18)
[2019-03-26] MEDS: ASPIRIN EC 81 MG TABLET PO SCH (08:29)
[2019-03-26] MEDS: APIXABAN 5 MG TABLET PO SCH ×2 (08:30→20:27)
[2019-03-26] MEDS: LISINOPRIL 20 MG TABLET PO SCH (08:30)
[2019-03-26] MEDS: SKIN HEALING OINT (AQUAPHOR) 50 GM TUBE TOP SCH (08:31)
[2019-03-26] MEDS: levETIRAcetam LIQUID 100 MG/ML 30 ML/BOTTLE PO SCH ×2 (08:31→20:27)
[2019-03-26] MEDS: DEXMEDETOMIDINE 200 MCG in SODIUM CHLORIDE 0.9% 48 ML IV PRN ×2 (12:57→20:05)
[2019-03-26] MEDS: POTASSIUM CHLORIDE 20 MEQ/15 ML UDCUP PO SCH ×2 (13:33→20:27)
[2019-03-26] MEDS: FUROSEMIDE 40 MG/4 ML VIAL IV SCH (17:44)
[2019-03-26] MEDS: ATORVASTATIN 10 MG TABLET PO SCH (20:27)
[2019-03-26] MEDS: FAMOTIDINE 20 MG TABLET PEG SCH (20:27)
[2019-03-26] MEDS: SERTRALINE 50 MG TABLET PO SCH (20:27)
[2019-03-27] MEDS: hydrALAZINE 20 MG/1 ML VIAL IV PRN (01:46)
[2019-03-27] MEDS: DEXMEDETOMIDINE 200 MCG in SODIUM CHLORIDE 0.9% 48 ML IV PRN (03:05)
[2019-03-27] MEDS: PIPERACILLIN/TAZOBACTAM 3,375 MG in SODIUM CHLORIDE 0.9% 100 ML IV SCH ×3 (05:17→20:26)
[2019-03-27 05:40] LABS: ABG Base Excess 10.4 MMOL/L (-2.5-2.5); ABG HCO3 34.2 MMOL/L (20-26); ABG Oxygen Saturation 99.4 % (95-100); ABG PCO2 47.4 MM HG (35-48); ABG PH 7.482 (7.35-7.45); ABG TCO2 31.3 MMOL/L (23-27)
[2019-03-27 06:10] LABS: Calcium 8.7 MG/DL (8.5-10.1); Osmolality,Calculated 293.3 MOS/KG (273-304); Prealbumin 19.1 MG/DL (20-40)
[2019-03-27] MEDS: INSULIN REGULAR 100 UNIT/ML SUBCUT SCH ×3 (06:22→18:54)
[2019-03-27] MEDS: POTASSIUM CHLORIDE RIDER 20 MEQ in PREMIX 1 EACH IV PRN ×2 (06:37→08:40)
[2019-03-27] MEDS: ASPIRIN EC 81 MG TABLET PO SCH (08:37)
[2019-03-27] MEDS: POTASSIUM CHLORIDE 20 MEQ/15 ML UDCUP PO SCH ×2 (08:37→20:25)
[2019-03-27] MEDS: APIXABAN 5 MG TABLET PO SCH ×2 (08:37→20:26)
[2019-03-27] MEDS: FUROSEMIDE 40 MG/4 ML VIAL IV SCH ×2 (08:37→16:54)
[2019-03-27] MEDS: SKIN HEALING OINT (AQUAPHOR) 50 GM TUBE TOP SCH (08:37)
[2019-03-27] MEDS: DEXMEDETOMIDINE 400 MCG in SODIUM CHLORIDE 0.9% 96 ML IV PRN ×2 (08:41→23:04)
[2019-03-27] MEDS: levETIRAcetam LIQUID 100 MG/ML 30 ML/BOTTLE PO SCH ×2 (08:42→20:26)
[2019-03-27] MEDS: LISINOPRIL 20 MG TABLET PO SCH (08:49)
[2019-03-27] MEDS: VANCOMYCIN INJ 1,250 MG in SODIUM CHLORIDE 0.9% 250 ML IV SCH ×2 (10:02→21:20)
[2019-03-27] MEDS: LORazepam 2 MG/1 ML VIAL IV PRN (10:13)
[2019-03-27] MEDS ORDERED: PHENYTOIN INJ 1,000 MG in SODIUM CHLORIDE 0.9% 100 ML IV ONE (13:30)
[2019-03-27] MEDS ORDERED: FUROSEMIDE 20 MG/2 ML VIAL ONE (16:40)
[2019-03-27] MEDS: POTASSIUM CHLORIDE RIDER 10 MEQ in PREMIX 1 EACH IV PRN (16:59)
[2019-03-27] MEDS: SERTRALINE 50 MG TABLET PO SCH (20:25)
[2019-03-27] MEDS: FAMOTIDINE 20 MG TABLET PEG SCH (20:25)
[2019-03-27] MEDS: ATORVASTATIN 10 MG TABLET PO SCH (20:26)
[2019-03-27] MEDS: PHENYTOIN 100 MG/4 ML UDCUP PO SCH (20:26)
[2019-03-28] MEDS: INSULIN REGULAR 100 UNIT/ML SUBCUT SCH ×4 (00:26→19:16)
[2019-03-28] MEDS ORDERED: MIDAZOLAM 2 MG/2 ML VIAL IV PRN (02:21)
[2019-03-28] MEDS ORDERED: MIDAZOLAM 2 MG/2 ML VIAL ONE (02:23)
[2019-03-28] MEDS: PROPOFOL 1,000 MG/100 ML BOTTLE IV SCH ×3 (02:45→16:39)
[2019-03-28 05:28] LABS: ABG Base Excess 9.8 MMOL/L (-2.5-2.5); ABG HCO3 33.6 MMOL/L (20-26); ABG Oxygen Saturation 99.8 % (95-100); ABG PCO2 50.5 MM HG (35-48); ABG PH 7.451 (7.35-7.45); ABG TCO2 32.5 MMOL/L (23-27)
[2019-03-28] MEDS: PIPERACILLIN/TAZOBACTAM 3,375 MG in SODIUM CHLORIDE 0.9% 100 ML IV SCH ×3 (05:30→20:09)
[2019-03-28 05:35] LABS: Basophils % 0.4 % (0.0-0.8); Eosinophils # 0.2 10*3/uL (0.0-0.87); Hematocrit 25.6 VOL% (42.0-52.0); Hemoglobin 8.1 GM/DL (14.0-18.0); Immature Granulocytes % 0.2 %; Immature Granulocytes Absolute 0.01 #; Lymphocytes # 1.1 10*3/uL (1.4-4.0); Lymphocytes % 22.6 % (21.2-54.2); Mean Corpuscular HGB Conc 31.6 GM/DL (32-36); Mean Corpuscular Volume 96.2 FL (87-102); Mean Platelet Volume 10.4 FL (9.6-12.0); Monocytes % 6.9 % (1.7-12.7); Neutrophils % 66.9 % (38.7-73.9); Platelet Count 153 T/CUMM (130-400); Red Blood Count 2.66 MC/CUMM (3.8-5.5); Red Cell Distribution Width 13.2 % (9.3-17.3)
[2019-03-28 05:48] LABS: Calcium 8.8 MG/DL (8.5-10.1); Osmolality,Calculated 294.4 MOS/KG (273-304)
[2019-03-28] MEDS: POTASSIUM CHLORIDE RIDER 20 MEQ in PREMIX 1 EACH IV PRN ×2 (06:30→09:10)
[2019-03-28] MEDS: DEXMEDETOMIDINE 400 MCG in SODIUM CHLORIDE 0.9% 96 ML IV PRN ×3 (07:05→20:10)
[2019-03-28] MEDS: FUROSEMIDE 40 MG/4 ML VIAL IV SCH ×2 (08:18→16:41)
[2019-03-28] MEDS: POTASSIUM CHLORIDE 20 MEQ/15 ML UDCUP PO SCH ×2 (08:24→21:20)
[2019-03-28] MEDS: SKIN HEALING OINT (AQUAPHOR) 50 GM TUBE TOP SCH (08:24)
[2019-03-28] MEDS: LISINOPRIL 20 MG TABLET PO SCH (08:25)
[2019-03-28] MEDS: PHENYTOIN 100 MG/4 ML UDCUP PO SCH ×3 (08:25→20:09)
[2019-03-28] MEDS: ASPIRIN EC 81 MG TABLET PO SCH (08:25)
[2019-03-28] MEDS: APIXABAN 5 MG TABLET PO SCH ×2 (08:25→20:09)
[2019-03-28] MEDS: levETIRAcetam LIQUID 100 MG/ML 30 ML/BOTTLE PO SCH ×2 (09:13→21:20)
[2019-03-28] MEDS: VANCOMYCIN INJ 1,250 MG in SODIUM CHLORIDE 0.9% 250 ML IV SCH ×2 (09:17→21:20)
[2019-03-28] MEDS: POTASSIUM CHLORIDE 20 MEQ/15 ML UDCUP PER TUBE SCH ×4 (10:21→21:20)
[2019-03-28] MEDS: FAMOTIDINE 20 MG TABLET PEG SCH (20:08)
[2019-03-28] MEDS: SERTRALINE 50 MG TABLET PO SCH (20:08)
[2019-03-28] MEDS: ATORVASTATIN 10 MG TABLET PO SCH (20:08)
[2019-03-29] MEDS: PROPOFOL 1,000 MG/100 ML BOTTLE IV SCH ×4 (00:45→21:13)
[2019-03-29] MEDS: DEXMEDETOMIDINE 400 MCG in SODIUM CHLORIDE 0.9% 96 ML IV PRN ×4 (02:20→22:30)
[2019-03-29] MEDS: INSULIN REGULAR 100 UNIT/ML SUBCUT SCH ×4 (03:12→17:54)
[2019-03-29 04:43] LABS: ABG Base Excess 8.8 MMOL/L (-2.5-2.5); ABG HCO3 32.6 MMOL/L (20-26); ABG Oxygen Saturation 99.2 % (95-100); ABG PCO2 50.1 MM HG (35-48); ABG PH 7.445 (7.35-7.45); ABG TCO2 30.5 MMOL/L (23-27)
[2019-03-29] MEDS: PIPERACILLIN/TAZOBACTAM 3,375 MG in SODIUM CHLORIDE 0.9% 100 ML IV SCH (04:56)
[2019-03-29 05:00] LABS: Basophils % 0.2 % (0.0-0.8); Eosinophils # 0.2 10*3/uL (0.0-0.87); Eosinophils % 3.4 % (0.00-10.9); Hematocrit 29.3 VOL% (42.0-52.0); Hemoglobin 9.1 GM/DL (14.0-18.0); Immature Granulocytes % 0.2 %; Immature Granulocytes Absolute 0.01 #; Lymphocytes % 18.6 % (21.2-54.2); Mean Corpuscular HGB Conc 31.1 GM/DL (32-36); Mean Corpuscular Volume 96.4 FL (87-102); Mean Platelet Volume 10.4 FL (9.6-12.0); Neutrophils % 70.6 % (38.7-73.9); Platelet Count 164 T/CUMM (130-400); Red Blood Count 3.04 MC/CUMM (3.8-5.5); Red Cell Distribution Width 12.6 % (9.3-17.3); White Blood Count 5.6 T/CUMM (4-12)
[2019-03-29 07:18] LABS: Calcium 8.8 MG/DL (8.5-10.1)
[2019-03-29 07:31] LABS: Osmolality,Calculated 294.3 MOS/KG (273-304)
[2019-03-29] MEDS: PHENYTOIN 100 MG/4 ML UDCUP PO SCH ×3 (09:07→21:43)
[2019-03-29] MEDS: FUROSEMIDE 40 MG/4 ML VIAL IV SCH ×2 (09:08→15:23)
[2019-03-29] MEDS: levETIRAcetam LIQUID 100 MG/ML 30 ML/BOTTLE PO SCH ×2 (09:08→21:44)
[2019-03-29] MEDS: POTASSIUM CHLORIDE 20 MEQ/15 ML UDCUP PO SCH ×2 (09:08→21:43)
[2019-03-29] MEDS: SKIN HEALING OINT (AQUAPHOR) 50 GM TUBE TOP SCH (09:08)
[2019-03-29] MEDS: ASPIRIN EC 81 MG TABLET PO SCH (09:09)
[2019-03-29] MEDS: LISINOPRIL 20 MG TABLET PO SCH (09:09)
[2019-03-29] MEDS: APIXABAN 5 MG TABLET PO SCH ×2 (09:09→21:44)
[2019-03-29] MEDS: VANCOMYCIN INJ 1,250 MG in SODIUM CHLORIDE 0.9% 250 ML IV SCH ×2 (09:33→21:45)
[2019-03-29] MEDS: FAMOTIDINE 20 MG TABLET PEG SCH (21:44)
[2019-03-29] MEDS: SERTRALINE 50 MG TABLET PO SCH (21:44)
[2019-03-29] MEDS: ATORVASTATIN 10 MG TABLET PO SCH (21:44)
[2019-03-30] MEDS: INSULIN REGULAR 100 UNIT/ML SUBCUT SCH ×4 (00:56→17:51)
[2019-03-30] MEDS: PROPOFOL 1,000 MG/100 ML BOTTLE IV SCH (04:55)
[2019-03-30] MEDS: DEXMEDETOMIDINE 400 MCG in SODIUM CHLORIDE 0.9% 96 ML IV PRN (04:56)
[2019-03-30] MEDS: hydrALAZINE 20 MG/1 ML VIAL IV PRN ×3 (05:20→23:28)
[2019-03-30 05:50] LABS: ABG Base Excess 9.2 MMOL/L (-2.5-2.5); ABG Oxygen Saturation 99.4 % (95-100); ABG PCO2 42.7 MM HG (35-48); ABG PH 7.502 (7.35-7.45); ABG TCO2 30.5 MMOL/L (23-27)
[2019-03-30 05:59] LABS: Basophils % 0.3 % (0.0-0.8); Eosinophils # 0.2 10*3/uL (0.0-0.87); Eosinophils % 2.8 % (0.00-10.9); Hematocrit 29.8 VOL% (42.0-52.0); Hemoglobin 9.1 GM/DL (14.0-18.0); Immature Granulocytes % 0.4 %; Immature Granulocytes Absolute 0.03 #; Lymphocytes # 1.4 10*3/uL (1.4-4.0); Lymphocytes % 17.8 % (21.2-54.2); Mean Corpuscular HGB Conc 30.5 GM/DL (32-36); Mean Platelet Volume 10.7 FL (9.6-12.0); Monocytes % 5.3 % (1.7-12.7); Neutrophils % 73.4 % (38.7-73.9); Platelet Count 216 T/CUMM (130-400); Red Blood Count 3.01 MC/CUMM (3.8-5.5); Red Cell Distribution Width 13.2 % (9.3-17.3); White Blood Count 7.9 T/CUMM (4-12)
[2019-03-30 06:10] LABS: Calcium 9.1 MG/DL (8.5-10.1); Osmolality,Calculated 291.7 MOS/KG (273-304)
[2019-03-30 06:32] LABS: Prealbumin 25.4 MG/DL (20-40)
[2019-03-30] MEDS ORDERED: LORazepam 2 MG/1 ML VIAL ONE (08:18)
[2019-03-30] MEDS: LORazepam 2 MG/1 ML VIAL IV PRN (08:21)
[2019-03-30] MEDS: APIXABAN 5 MG TABLET PO SCH ×2 (09:06→21:31)
[2019-03-30] MEDS: PHENYTOIN 100 MG/4 ML UDCUP PO SCH ×3 (09:06→21:31)
[2019-03-30] MEDS: LISINOPRIL 20 MG TABLET PO SCH (09:06)
[2019-03-30] MEDS: ASPIRIN EC 81 MG TABLET PO SCH ×2 (09:06→09:41)
[2019-03-30] MEDS: FUROSEMIDE 40 MG/4 ML VIAL IV SCH ×2 (09:07→15:50)
[2019-03-30] MEDS: levETIRAcetam LIQUID 100 MG/ML 30 ML/BOTTLE PO SCH ×2 (09:07→21:31)
[2019-03-30] MEDS: SKIN HEALING OINT (AQUAPHOR) 50 GM TUBE TOP SCH (09:07)
[2019-03-30] MEDS: POTASSIUM CHLORIDE 20 MEQ/15 ML UDCUP PO SCH ×2 (09:07→21:31)
[2019-03-30] MEDS: VANCOMYCIN INJ 1,250 MG in SODIUM CHLORIDE 0.9% 250 ML IV SCH ×2 (09:08→21:32)
[2019-03-30] MEDS: POTASSIUM CHLORIDE 20 MEQ/15 ML UDCUP PER TUBE SCH ×3 (10:15→17:51)
[2019-03-30] MEDS: LEVOFLOXACIN 750 MG TABLET PER TUBE SCH (10:15)
[2019-03-30] MEDS: PIPERACILLIN/TAZOBACTAM 3,375 MG in SODIUM CHLORIDE 0.9% 100 ML IV SCH ×2 (10:16→17:50)
[2019-03-30] MEDS: ASPIRIN CHEW 81 MG TABLET PO SCH (10:16)
[2019-03-30] MEDS ORDERED: AMIODARONE INJ 150 MG in DEXTROSE 5% 100 ML IV ONE ×2 (11:11→13:48)
[2019-03-30] MEDS ORDERED: AMIODARONE 150 MG/3 ML VIAL ONE (11:13)
[2019-03-30] MEDS: ACETAMINOPHEN 325 MG TABLET PO PRN (11:34)
[2019-03-30] MEDS ORDERED: DIGOXIN 0.5 MG/2 ML AMP IV ONE (18:38)
[2019-03-30] MEDS: FAMOTIDINE 20 MG TABLET PEG SCH (21:30)
[2019-03-30] MEDS: ATORVASTATIN 10 MG TABLET PO SCH (21:30)
[2019-03-30] MEDS: SERTRALINE 50 MG TABLET PO SCH (21:31)
[2019-03-30] MEDS: METOPROLOL TARTRATE 5 MG/5 ML VIAL IV PRN (22:41)
[2019-03-31] MEDS: INSULIN REGULAR 100 UNIT/ML SUBCUT SCH ×4 (01:55→18:14)
[2019-03-31] MEDS: PIPERACILLIN/TAZOBACTAM 3,375 MG in SODIUM CHLORIDE 0.9% 100 ML IV SCH ×3 (04:28→17:04)
[2019-03-31] MEDS: hydrALAZINE 20 MG/1 ML VIAL IV PRN ×3 (04:32→21:11)
[2019-03-31] MEDS: PROPOFOL 1,000 MG/100 ML BOTTLE IV SCH (04:54)
[2019-03-31] MEDS: METOPROLOL TARTRATE 5 MG/5 ML VIAL IV PRN ×2 (05:20→17:08)
[2019-03-31 05:32] LABS: ABG Base Excess 7.4 MMOL/L (-2.5-2.5); ABG HCO3 31.2 MMOL/L (20-26); ABG Oxygen Saturation 98.8 % (95-100); ABG PCO2 37.5 MM HG (35-48); ABG PH 7.522 (7.35-7.45); ABG TCO2 28.2 MMOL/L (23-27)
[2019-03-31 05:44] LABS: Basophils % 0.2 % (0.0-0.8); Eosinophils # 0.1 10*3/uL (0.0-0.87); Eosinophils % 0.6 % (0.00-10.9); Hematocrit 28.4 VOL% (42.0-52.0); Hemoglobin 8.8 GM/DL (14.0-18.0); Immature Granulocytes % 0.4 %; Immature Granulocytes Absolute 0.04 #; Lymphocytes # 1.7 10*3/uL (1.4-4.0); Lymphocytes % 18.1 % (21.2-54.2); Mean Corpuscular Volume 97.9 FL (87-102); Mean Platelet Volume 10.6 FL (9.6-12.0); Monocytes % 9.3 % (1.7-12.7); Neutrophils % 71.4 % (38.7-73.9); Platelet Count 264 T/CUMM (130-400); Red Cell Distribution Width 13.9 % (9.3-17.3); White Blood Count 9.4 T/CUMM (4-12)
[2019-03-31 06:04] LABS: Calcium 9.4 MG/DL (8.5-10.1); Osmolality,Calculated 295.4 MOS/KG (273-304)
[2019-03-31] MEDS: POTASSIUM CHLORIDE 20 MEQ/15 ML UDCUP PO SCH ×2 (08:58→21:05)
[2019-03-31] MEDS: SKIN HEALING OINT (AQUAPHOR) 50 GM TUBE TOP SCH (08:59)
[2019-03-31] MEDS: LEVOFLOXACIN 750 MG TABLET PER TUBE SCH (08:59)
[2019-03-31] MEDS: LISINOPRIL 20 MG TABLET PO SCH (08:59)
[2019-03-31] MEDS: PHENYTOIN 100 MG/4 ML UDCUP PO SCH ×2 (08:59→15:26)
[2019-03-31] MEDS: APIXABAN 5 MG TABLET PO SCH ×2 (08:59→20:38)
[2019-03-31] MEDS: ASPIRIN CHEW 81 MG TABLET PO SCH (08:59)
[2019-03-31] MEDS: POTASSIUM CHLORIDE 20 MEQ/15 ML UDCUP PER TUBE SCH ×3 (09:02→16:54)
[2019-03-31] MEDS: FUROSEMIDE 20 MG TABLET PO SCH (09:02)
[2019-03-31] MEDS: levETIRAcetam LIQUID 100 MG/ML 30 ML/BOTTLE PO SCH (09:13)
[2019-03-31] MEDS: VANCOMYCIN INJ 1,250 MG in SODIUM CHLORIDE 0.9% 250 ML IV SCH ×2 (09:17→21:04)
[2019-03-31] MEDS: FUROSEMIDE 40 MG/4 ML VIAL IV SCH (09:31)
[2019-03-31] MEDS: amLODIPine 5 MG TABLET PEG SCH (11:55)
[2019-03-31] MEDS: LORazepam 2 MG/1 ML VIAL IV PRN (19:23)
[2019-03-31] MEDS ORDERED: LACOSAMIDE INJ 100 MG in SODIUM CHLORIDE 0.9% 50 ML IV SCH (19:40)
[2019-03-31] MEDS: PHENYTOIN 100 MG/2 ML VIAL IV SCH (20:33)
[2019-03-31] MEDS: FAMOTIDINE 20 MG TABLET PEG SCH (20:38)
[2019-03-31] MEDS: SERTRALINE 50 MG TABLET PO SCH (20:38)
[2019-03-31] MEDS: ATORVASTATIN 10 MG TABLET PO SCH (20:39)
[2019-03-31] MEDS ORDERED: VALPROIC ACID INJ 1,000 MG in SODIUM CHLORIDE 0.9% 100 ML IV ONE (21:00)
[2019-04-01] MEDS: INSULIN REGULAR 100 UNIT/ML SUBCUT SCH ×5 (00:10→23:12)
[2019-04-01] MEDS: METOPROLOL TARTRATE 5 MG/5 ML VIAL IV PRN ×2 (00:11→05:22)
[2019-04-01] MEDS: hydrALAZINE 20 MG/1 ML VIAL IV PRN ×2 (02:23→06:57)
[2019-04-01] MEDS: PIPERACILLIN/TAZOBACTAM 3,375 MG in SODIUM CHLORIDE 0.9% 100 ML IV SCH ×3 (02:26→18:17)
[2019-04-01 03:52] LABS: Basophils % 0.4 % (0.0-0.8); Eosinophils # 0.1 10*3/uL (0.0-0.87); Eosinophils % 1.5 % (0.00-10.9); Hematocrit 30.6 VOL% (42.0-52.0); Hemoglobin 9.3 GM/DL (14.0-18.0); Immature Granulocytes % 0.6 %; Immature Granulocytes Absolute 0.04 #; Lymphocytes # 1.6 10*3/uL (1.4-4.0); Lymphocytes % 22.8 % (21.2-54.2); Mean Corpuscular HGB Conc 30.4 GM/DL (32-36); Mean Corpuscular Volume 97.8 FL (87-102); Mean Platelet Volume 10.3 FL (9.6-12.0); Monocytes % 7.4 % (1.7-12.7); Neutrophils % 67.3 % (38.7-73.9); Platelet Count 275 T/CUMM (130-400); Red Blood Count 3.13 MC/CUMM (3.8-5.5); Red Cell Distribution Width 14.2 % (9.3-17.3); White Blood Count 6.8 T/CUMM (4-12)
[2019-04-01 04:16] LABS: Calcium 9.5 MG/DL (8.5-10.1); Osmolality,Calculated 287.8 MOS/KG (273-304)
[2019-04-01] MEDS: VALPROIC ACID INJ 500 MG in SODIUM CHLORIDE 0.9% 100 ML IV SCH ×3 (05:25→20:36)
[2019-04-01] MEDS: PHENYTOIN 100 MG/2 ML VIAL IV SCH ×3 (05:25→20:34)
[2019-04-01] MEDS: LEVOFLOXACIN 750 MG TABLET PER TUBE SCH (08:58)
[2019-04-01] MEDS: LISINOPRIL 20 MG TABLET PO SCH (08:58)
[2019-04-01] MEDS: APIXABAN 5 MG TABLET PO SCH ×2 (08:58→20:32)
[2019-04-01] MEDS: FUROSEMIDE 20 MG TABLET PO SCH (08:58)
[2019-04-01] MEDS: POTASSIUM CHLORIDE 20 MEQ/15 ML UDCUP PO SCH ×2 (08:58→20:32)
[2019-04-01] MEDS: ASPIRIN CHEW 81 MG TABLET PO SCH (08:58)
[2019-04-01] MEDS: amLODIPine 5 MG TABLET PEG SCH (08:58)
[2019-04-01] MEDS: SKIN HEALING OINT (AQUAPHOR) 50 GM TUBE TOP SCH (08:59)
[2019-04-01] MEDS: VANCOMYCIN INJ 1,250 MG in SODIUM CHLORIDE 0.9% 250 ML IV SCH ×2 (09:36→22:27)
[2019-04-01] MEDS: FAMOTIDINE 20 MG TABLET PEG SCH (20:33)
[2019-04-01] MEDS: SERTRALINE 50 MG TABLET PO SCH (20:33)
[2019-04-01] MEDS: ATORVASTATIN 10 MG TABLET PO SCH (20:33)
[2019-04-01] MEDS: POTASSIUM CHLORIDE RIDER 10 MEQ in PREMIX 1 EACH IV PRN (20:36)
[2019-04-02] MEDS: hydrALAZINE 20 MG/1 ML VIAL IV PRN (01:54)
[2019-04-02] MEDS: PIPERACILLIN/TAZOBACTAM 3,375 MG in SODIUM CHLORIDE 0.9% 100 ML IV SCH ×3 (01:55→18:06)
[2019-04-02] MEDS ORDERED: LORazepam 2 MG/1 ML VIAL ONE (01:57)
[2019-04-02] MEDS: LORazepam 2 MG/1 ML VIAL IV PRN (02:15)
[2019-04-02] MEDS: ACETAMINOPHEN 325 MG TABLET PO PRN (02:16)
[2019-04-02] MEDS: VALPROIC ACID INJ 500 MG in SODIUM CHLORIDE 0.9% 100 ML IV SCH ×3 (06:27→22:11)
[2019-04-02] MEDS: PHENYTOIN 100 MG/2 ML VIAL IV SCH ×3 (06:27→20:25)
[2019-04-02] MEDS: INSULIN REGULAR 100 UNIT/ML SUBCUT SCH ×3 (06:29→18:03)
[2019-04-02 06:31] LABS: Basophils % 0.3 % (0.0-0.8); Eosinophils # 0.1 10*3/uL (0.0-0.87); Eosinophils % 2.2 % (0.00-10.9); Hematocrit 29.5 VOL% (42.0-52.0); Immature Granulocytes % 0.3 %; Immature Granulocytes Absolute 0.02 #; Lymphocytes # 1.6 10*3/uL (1.4-4.0); Lymphocytes % 25.7 % (21.2-54.2); Mean Corpuscular HGB Conc 30.5 GM/DL (32-36); Mean Corpuscular Volume 98.7 FL (87-102); Mean Platelet Volume 9.4 FL (9.6-12.0); Monocytes % 8.7 % (1.7-12.7); Neutrophils % 62.8 % (38.7-73.9); Platelet Count 252 T/CUMM (130-400); Red Blood Count 2.99 MC/CUMM (3.8-5.5); Red Cell Distribution Width 14.2 % (9.3-17.3); White Blood Count 6.3 T/CUMM (4-12)
[2019-04-02 06:59] LABS: Calcium 9.5 MG/DL (8.5-10.1); Osmolality,Calculated 292.6 MOS/KG (273-304)
[2019-04-02] MEDS: APIXABAN 5 MG TABLET PO SCH ×2 (08:27→20:24)
[2019-04-02] MEDS: SKIN HEALING OINT (AQUAPHOR) 50 GM TUBE TOP SCH (08:27)
[2019-04-02] MEDS: POTASSIUM CHLORIDE 20 MEQ/15 ML UDCUP PO SCH ×2 (08:27→20:25)
[2019-04-02] MEDS: FUROSEMIDE 20 MG TABLET PO SCH (08:27)
[2019-04-02] MEDS: LISINOPRIL 20 MG TABLET PO SCH (08:27)
[2019-04-02] MEDS: ASPIRIN CHEW 81 MG TABLET PO SCH (08:27)
[2019-04-02] MEDS: amLODIPine 5 MG TABLET PEG SCH (08:28)
[2019-04-02] MEDS ORDERED: METOPROLOL TARTRATE 50 MG TABLET PEG SCH (09:11)
[2019-04-02] MEDS: VANCOMYCIN INJ 1,250 MG in SODIUM CHLORIDE 0.9% 250 ML IV SCH ×2 (09:57→23:30)
[2019-04-02] MEDS: METOPROLOL TARTRATE 50 MG TABLET PEG SCH ×2 (09:57→18:01)
[2019-04-02] MEDS: SERTRALINE 50 MG TABLET PO SCH (20:24)
[2019-04-02] MEDS: FAMOTIDINE 20 MG TABLET PEG SCH (20:24)
[2019-04-02] MEDS: ATORVASTATIN 10 MG TABLET PO SCH (20:25)
[2019-04-03] MEDS: METOPROLOL TARTRATE 50 MG TABLET PEG SCH ×3 (01:12→17:30)
[2019-04-03] MEDS: INSULIN REGULAR 100 UNIT/ML SUBCUT SCH ×4 (01:17→19:08)
[2019-04-03] MEDS: PIPERACILLIN/TAZOBACTAM 3,375 MG in SODIUM CHLORIDE 0.9% 100 ML IV SCH ×3 (02:27→17:30)
[2019-04-03 05:33] LABS: Basophils % 0.6 % (0.0-0.8); Eosinophils # 0.2 10*3/uL (0.0-0.87); Eosinophils % 3.4 % (0.00-10.9); Hematocrit 33.5 VOL% (42.0-52.0); Hemoglobin 10.5 GM/DL (14.0-18.0); Immature Granulocytes % 0.2 %; Immature Granulocytes Absolute 0.01 #; Lymphocytes # 1.6 10*3/uL (1.4-4.0); Lymphocytes % 30.5 % (21.2-54.2); Mean Corpuscular HGB Conc 31.3 GM/DL (32-36); Mean Corpuscular Volume 97.7 FL (87-102); Mean Platelet Volume 10.9 FL (9.6-12.0); Monocytes % 7.9 % (1.7-12.7); Neutrophils % 57.4 % (38.7-73.9); Platelet Count 212 T/CUMM (130-400); Red Blood Count 3.43 MC/CUMM (3.8-5.5); White Blood Count 5.4 T/CUMM (4-12)
[2019-04-03] MEDS: PHENYTOIN 100 MG/2 ML VIAL IV SCH ×3 (05:51→20:58)
[2019-04-03] MEDS: VALPROIC ACID INJ 500 MG in SODIUM CHLORIDE 0.9% 100 ML IV SCH ×3 (05:51→20:58)
[2019-04-03] MEDS: hydrALAZINE 20 MG/1 ML VIAL IV PRN (05:53)
[2019-04-03 06:10] LABS: Calcium 9.4 MG/DL (8.5-10.1); Osmolality,Calculated 286.8 MOS/KG (273-304)
[2019-04-03 06:12] LABS: Hypochromasia 1+
[2019-04-03 06:13] LABS: Ovalocytes Slight
[2019-04-03 06:14] LABS: Microcytosis Slight
[2019-04-03 06:35] LABS: Prealbumin 25.7 MG/DL (20-40)
[2019-04-03] MEDS: APIXABAN 5 MG TABLET PO SCH ×2 (08:46→20:57)
[2019-04-03] MEDS: LISINOPRIL 20 MG TABLET PO SCH (08:46)
[2019-04-03] MEDS: SKIN HEALING OINT (AQUAPHOR) 50 GM TUBE TOP SCH (08:46)
[2019-04-03] MEDS: FUROSEMIDE 20 MG TABLET PO SCH (08:47)
[2019-04-03] MEDS: ASPIRIN CHEW 81 MG TABLET PO SCH (08:48)
[2019-04-03] MEDS: amLODIPine 5 MG TABLET PEG SCH (08:48)
[2019-04-03] MEDS: POTASSIUM CHLORIDE 20 MEQ/15 ML UDCUP PO SCH ×2 (10:03→20:57)
[2019-04-03] MEDS: VANCOMYCIN INJ 1,250 MG in SODIUM CHLORIDE 0.9% 250 ML IV SCH ×2 (10:25→21:34)
[2019-04-03] MEDS: ATORVASTATIN 10 MG TABLET PO SCH (20:57)
[2019-04-03] MEDS: FAMOTIDINE 20 MG TABLET PEG SCH (20:58)
[2019-04-03] MEDS: SERTRALINE 50 MG TABLET PO SCH (20:58)
[2019-04-04] MEDS: INSULIN REGULAR 100 UNIT/ML SUBCUT SCH ×4 (00:31→19:07)
[2019-04-04] MEDS: PIPERACILLIN/TAZOBACTAM 3,375 MG in SODIUM CHLORIDE 0.9% 100 ML IV SCH ×3 (01:49→17:10)
[2019-04-04] MEDS: METOPROLOL TARTRATE 50 MG TABLET PEG SCH ×3 (01:53→17:10)
[2019-04-04 04:40] LABS: Basophils % 0.6 % (0.0-0.8); Eosinophils # 0.2 10*3/uL (0.0-0.87); Hematocrit 29.7 VOL% (42.0-52.0); Hemoglobin 9.3 GM/DL (14.0-18.0); Immature Granulocytes % 0.4 %; Immature Granulocytes Absolute 0.02 #; Lymphocytes # 1.2 10*3/uL (1.4-4.0); Lymphocytes % 24.8 % (21.2-54.2); Mean Corpuscular HGB Conc 31.3 GM/DL (32-36); Mean Corpuscular Volume 97.4 FL (87-102); Mean Platelet Volume 10.4 FL (9.6-12.0); Monocytes % 6.5 % (1.7-12.7); Neutrophils % 62.7 % (38.7-73.9); Platelet Count 262 T/CUMM (130-400); Red Blood Count 3.05 MC/CUMM (3.8-5.5); White Blood Count 4.8 T/CUMM (4-12)
[2019-04-04] MEDS: VALPROIC ACID INJ 500 MG in SODIUM CHLORIDE 0.9% 100 ML IV SCH ×3 (04:49→20:46)
[2019-04-04] MEDS: PHENYTOIN 100 MG/2 ML VIAL IV SCH ×3 (04:49→20:44)
[2019-04-04 05:00] LABS: Albumin 2.3 G/DL (3.4-5.0); Bilirubin,Total 0.6 MG/DL (0.2-1.0); Calcium 9.3 MG/DL (8.5-10.1); Osmolality,Calculated 286.8 MOS/KG (273-304); Total Protein 5.6 G/DL (6.4-8.3)
[2019-04-04] MEDS: APIXABAN 5 MG TABLET PO SCH ×2 (08:18→20:44)
[2019-04-04] MEDS: POTASSIUM CHLORIDE 20 MEQ/15 ML UDCUP PO SCH ×2 (08:18→20:55)
[2019-04-04] MEDS: FUROSEMIDE 20 MG TABLET PO SCH (08:19)
[2019-04-04] MEDS: LISINOPRIL 20 MG TABLET PO SCH (08:19)
[2019-04-04] MEDS: amLODIPine 5 MG TABLET PEG SCH (08:19)
[2019-04-04] MEDS: ASPIRIN CHEW 81 MG TABLET PO SCH (08:19)
[2019-04-04] MEDS: SKIN HEALING OINT (AQUAPHOR) 50 GM TUBE TOP SCH (08:19)
[2019-04-04] MEDS: VANCOMYCIN INJ 1,250 MG in SODIUM CHLORIDE 0.9% 250 ML IV SCH (09:19)
[2019-04-04] MEDS: SERTRALINE 50 MG TABLET PO SCH (20:45)
[2019-04-04] MEDS: ATORVASTATIN 10 MG TABLET PO SCH (20:45)
[2019-04-04] MEDS: FAMOTIDINE 20 MG TABLET PEG SCH (20:45)
[2019-04-05] MEDS: METOPROLOL TARTRATE 50 MG TABLET PEG SCH ×3 (01:13→16:47)
[2019-04-05] MEDS: PIPERACILLIN/TAZOBACTAM 3,375 MG in SODIUM CHLORIDE 0.9% 100 ML IV SCH ×2 (01:14→10:44)
[2019-04-05] MEDS: INSULIN REGULAR 100 UNIT/ML SUBCUT SCH ×3 (01:15→15:21)
[2019-04-05] MEDS: VALPROIC ACID INJ 500 MG in SODIUM CHLORIDE 0.9% 100 ML IV SCH ×2 (04:53→15:12)
[2019-04-05] MEDS: PHENYTOIN 100 MG/2 ML VIAL IV SCH ×2 (04:54→15:13)
[2019-04-05] MEDS: SKIN HEALING OINT (AQUAPHOR) 50 GM TUBE TOP SCH (08:45)
[2019-04-05] MEDS: FUROSEMIDE 20 MG TABLET PO SCH (08:45)
[2019-04-05] MEDS: APIXABAN 5 MG TABLET PO SCH (08:47)
[2019-04-05] MEDS: ASPIRIN CHEW 81 MG TABLET PO SCH (08:47)
[2019-04-05] MEDS: LISINOPRIL 20 MG TABLET PO SCH (08:47)
[2019-04-05] MEDS: amLODIPine 5 MG TABLET PEG SCH (08:47)
[2019-04-05] MEDS: POTASSIUM CHLORIDE 20 MEQ/15 ML UDCUP PO SCH (10:44)
[2019-04-05 16:01] VITALS: BP 151/100
== END 2019-04-05 18:48 | disposition hospice, home (50) | DRG 56 ==
LOC: EDUNIT# → EDSEX → EDBD → N.ED 21:00 → N.EDINP 23:25 → SUATTDRO 23:25 → N.CC 03-22 01:12 → N.2E 04-02 14:01
PROVIDERS: ADMIT Internal Medicine Geriatric Medicine; ATTEND Internal Medicine